=== PATIENT | male | born 1985 | race Caucasian/White ===

== ENCOUNTER 2017-02-21 21:24 | Emergency (ER) | payer OTHER ==
[~2017-02-21] VITALS: Ht 170.2 cm; Wt 86.2 kg
--- NOTE | ~2017-02-21 | CR141 ---
[facility] A Service of [facility] & [facility] RADIOLOGY TEXT RESULTS PATIENT: USHA ARELLANO LOCATION: CFTX : 89 UNIT #: [id number] AGE: [address]: Sofia Mejía APRN SEX: M ORDER DR: [id number] [facility] [address]. [place], [place] [address] [id number] MR#: [id number] Acc #: [id number] NAME: USHA ARELLANO : 1985 SEX: M STUDY DATE/TIME: 02/21/2017 22:20 UNIT: [facility] ROOM: STUDY DESCRIPTION: CR Hand Min 3 Views Lt Attending Physician: Sofia Mejía A.P.R.N. Ordering Physician: Ed Michael Moore M.D. Primary Care Physician: No Primary Care Physician MEDICAL IMAGING REPORT This report is preliminary unless electronic signature is present EXAM Left hand, 3 views. HISTORY Pain and swelling third metacarpal. Rock fell on hand 2 days ago. FINDINGS Three views of the left hand demonstrates mild soft tissue swelling about the third digit. No fracture or dislocation. Multiple radiodensities are seen along the radial side of the distal phalanx of the index finger, could represent foreign body contamination. No acute fracture or dislocation. Joint spaces maintained. Dictated by... Nancie Manley M.D. THIS IS AN ELECTRONICALLY VERIFIED REPORT Nancie Manley M.D. at 02/22/2017 2:22 PM ZEFERINO/leopoldo TD: 02/22/2017 01:34 JOB #: [id number] MEDICAL IMAGING REPORT Page 1 of 1 COPY
== END 2017-02-22 00:20 | disposition home or self-care (01) ==
LOC: CFTX 21:24 → CED 21:24 → CFTX 23:59
DX: S60.222A Contusion of left hand, initial encounter (principal); W20.8XXA Other cause of strike by thrown, projected or falling object, initial encounter; Y92.009 Unspecified place in unspecified non-institutional (private) residence as the place of occurrence of the external cause
CPT/HCPCS: 29130; 73130; 99283